=== PATIENT | female | born 1975 | race Caucasian/White ===

== ENCOUNTER 2023-01-06 17:32 | Emergency (ER) | payer OTHER, SELFPAY ==
[2023-01-06] MEDS ORDERED: Ondansetron PF 4 MG/2 ML Vial ONE (18:13)
[2023-01-06] MEDS ORDERED: Morphine 2 MG/ML VIAL ONE ×2 (18:13→18:29)
[2023-01-06] MEDS ORDERED: fentaNYL 50 mcg/mL 1 mL Vial ONE (18:17)
[2023-01-06] MEDS ORDERED: diphenhydrAMINE 12.5 MG/5 ML UDCUP ONE (18:17)
[2023-01-06] MEDS ORDERED: diphenhydrAMINE 50 MG/ML VIAL ONE (18:19)
== END 2023-01-06 19:16 | disposition home or self-care (01) ==
LOC: NAV ERS 17:32
DX: S06.0XAA Concussion with loss of consciousness status unknown, initial encounter (principal); S00.93XA Contusion of unspecified part of head, initial encounter; V00.131A Fall from skateboard, initial encounter
CPT/HCPCS: 70450; 72125; 96374; 96375; J1200; J2272; J2405; J3010; Q0163